=== PATIENT | male | born 1965 | race Two or more races ===

== ENCOUNTER → 2025-08-31 | Outpatient (CLI) | payer SELFPAY ==
--- NOTE | 2025-08-31 13:44 | ECHOD_ITS ---
Reason For Study Reason For Study: CAD, HYPERTENSION, HYPERLIPIDEMIA, CARDIOMYOPATHY Procedure This was a 2D Doppler, Color Flow transthoracic echocardiogram. The patient is in sinus rhythm. Myocardial strain analysis was performed in this exam to aid in the assessment of cardiac function. Contrast injection was performed. Exam performed in department. Left Ventricle Normal LV size. The left ventricular ejection fraction is 35 %. There are regional wall motion abnormalities as specified. [place] : Akinetic. Mid-anteroseptal : Hypokinetic. Right Ventricle Normal RV size. Normal systolic function. Atria The left atrium is mildly enlarged. Normal right atrium. Mitral Valve Normal mitral valve. Mild (1+) eccentric mitral valve insufficiency. Tricuspid Valve Normal tricuspid valve. Mild (1+) tricuspid valve insufficiency. Pulmonary artery systolic pressure is 30 mmHg. Aortic Valve Trisinus/trileaflet aortic valve. Pulmonic Valve Normal pulmonic valve. Great Vessels Normal aortic root. The pulmonary artery is normal size. Inferior vena cava collapse with respiration. Pericardium/Pleural No pericardial effusion. Medication 22 gauge I.V. with prn adaptor inserted into right arm. Diluted definity 2.5ml given slow IV push to enhance endocardial definition. MMode/2D Measurements & Calculations LVIDd: 5.2 cm IVSd: 1.0 cm asc Aorta Diam: 3.5 cm LVIDs: 3.6 cm LVPWd: 1.00 cm RVDd: 3.4 cm FS: 30.5 % LAV(MOD-bp): 68.5 ml LVAd ap4: 41.8 cm2 LVAd ap2: 39.7 cm2 LAV(MOD-bp) Indexed: 33.0 ml/m2 LVLd ap4: 9.2 cm LVLd ap2: 9.3 cm LAV(MOD-sp2): 69.0 ml EDV(MOD-sp4): 158.6 ml EDV(MOD-sp2): 143.3 ml LAV(MOD-sp4): 61.0 ml EDV(sp4-el): 160.7 ml EDV(sp2-el): 143.5 ml LVAs ap4: 32.7 cm2 LVAs ap2: 30.1 cm2 LVLs ap4: 8.6 cm LVLs ap2: 8.6 cm ESV(MOD-sp4): 102.5 ml ESV(MOD-sp2): 86.4 ml ESV(sp4-el): 105.9 ml ESV(sp2-el): 89.9 ml EF(MOD-sp4): 35.4 % EF(MOD-sp2): 39.7 % EF(sp4-el): 34.1 % SV(MOD-sp4): 56.1 ml SV(MOD-sp2): 56.9 ml SV(sp4-el): 54.9 ml SI(MOD-sp4): 27.0 ml/m2 SI(MOD-sp2): 27.4 ml/m2 LA A4 area: 21.2 cm2 RA A4 area: 17.7 cm2 TAPSE: 2.4 cm Time Measurements MV dec time: 0.15 sec Doppler Measurements & Calculations MV E max vargas: 79.5 cm/sec Lat Peak E' Vargas: 8.1 cm/sec Med Peak E' Vargas: 8.1 cm/sec MV A max vargas: 51.1 cm/sec E/E' lat: 9.8 E/E' med: 9.9 MV E/A: 1.6 MV dec slope: 522.1 cm/sec2 Ao V2 max: 119.4 cm/sec LV V1 max: 104.7 cm/sec Ao max P.7 mmHg LV V1 max P.4 mmHg Ao V2 mean: 84.9 cm/sec LV V1 mean P.4 mmHg Ao mean P.3 mmHg LV V1 mean: 74.1 cm/sec Ao V2 VTI: 29.2 cm LV V1 VTI: 22.1 cm AV (velocity ratio): 0.76 PA V2 max: 97.7 cm/sec TR max vargas: 264.0 cm/sec TR max P.9 mmHg ECHO/Echo Complete W/ Contrast Interpretation Summary The left ventricular ejection fraction is 35 %. Normal LV size. The left atrium is mildly enlarged. Mild (1+) eccentric mitral valve insufficiency. Mild (1+) tricuspid valve insufficiency. Ordering Physician: Junaid Yost Referring Physician: No primary Performed By: Gordon, Tachianna, RDCS
[2025-08-31 16:10] LABS: AST(SGOT) 24 U/L (<=37); Alanine Aminotransfer ALT/SGPT 42 U/L (<=46); Albumin, Serum 4.0 g/dL (3.5-5.0); Alkaline Phosphatase 57 U/L (40-129); Anion Gap 8 (5-15); BUN 16 mg/dL (4-19); BUN/Creat Ratio 14.0 RATIO (10-20); Calcium,Total 9.0 mg/dL (7.6-11.0); Carbon Dioxide 28.0 mmol/L (21.0-32.0); Chloride 104 mmol/L (98-108); Cholesterol 102 mg/dL (<=200); Globulin 2.6 g/dL (2.2-4.2); Glucose 85 mg/dL (70-99); Low Density Lipoprotein Calc. 52 mg/dL; Potassium 3.8 mmol/L (3.3-5.1); Triglycerides 85 mg/dL; Very Low Density Lipoprotein 17 mg/dL (5-40); cholesterol:hdl ratio screen 3.14
== END | disposition home or self-care (01) ==
LOC: CVS 13:39
PROVIDERS: Referring Provider Internal Medicine Cardiovascular Disease; Visit Provider Internal Medicine Cardiovascular Disease
DX: I25.10 Atherosclerotic heart disease of native coronary artery without angina pectoris (principal); I42.9 Cardiomyopathy, unspecified; I10 Essential (primary) hypertension; E78.5 Hyperlipidemia, unspecified
CPT/HCPCS: 36415; 80053; 80061; 93306; Q9957; A4216; C8929